=== PATIENT | female | born 1980 | race Caucasian/White ===

== ENCOUNTER → 2018-05-05 | Outpatient (CLI) | payer SELFPAY ==
[2004-07-05 12:02] VITALS: PULSE 102; TEMP 97.1
== END ==
LOC: MC.RAD 12:35
DX: Z12.31 Encounter for screening mammogram for malignant neoplasm of breast (principal); N63.31 Unspecified lump in axillary tail of the right breast

== ENCOUNTER → 2018-05-12 | Outpatient (CLI) | payer SELFPAY ==
[2004-07-05 12:02] VITALS: PULSE 102; TEMP 97.1
== END ==
LOC: MC.RAD 10:54
DX: N63.31 Unspecified lump in axillary tail of the right breast (principal)

== ENCOUNTER → 2020-10-19 | Outpatient (CLI) | payer OTHER ==
[2004-07-05 12:02] VITALS: PULSE 102; TEMP 97.1
== END ==
LOC: COL.RAD 08:15
DX: S73.192A Other sprain of left hip, initial encounter (principal); M24.852 Other specific joint derangements of left hip, not elsewhere classified; M24.152 Other articular cartilage disorders, left hip; D25.9 Leiomyoma of uterus, unspecified; Z98.890 Other specified postprocedural states
CPT/HCPCS: A9585; Q9967